=== PATIENT | male | born 1950 | race Caucasian/White ===

== ENCOUNTER 2021-07-08 07:50 | Outpatient (REF) | payer MEDICARE, MEDICAID, SELFPAY ==
[2021-07-08 11:50] LABS: Appearance Urine CLEAR; Color Urine YELLOW; Glucose Urine UA NEG (NEG); Leukocyte Esterase Urine NEG (NEG); Nitrite Urine NEG (NEG); PH 5.5 (5.0-8.0); Specific Gravity - Urine >= 1.030 (1.005-1.025); Urine Blood NEG (NEG); Urine Ketones NEG (NEG); Urine Protein NEG (NEG-TRACE)
[2021-07-08 11:59] LABS: Hematocrit 48.9 % (42.0-52.0); Hemoglobin 15.9 g/dl (14.0-18.0); Mean Corpuscular HGB Conc 32.5 g/dl (31.0-36.0); Mean Corpuscular Hemoglobin 28.6 pg (27.0-33.0); Mean Corpuscular Volume 88.1 fL (80.0-98.0); Mean Platelet Volume 10.4 fL (9.4-12.4); Platelet Count 263 X10*3/uL (160-400); Red Blood Count 5.55 X10*6/uL (4.60-5.80); Red Cell Distribution Width 12.8 % (11.0-16.0)
[2021-07-08 12:11] LABS: Estimated Average Glucose 120 mg/dL; Hemoglobin A1c % 5.8 %
[2021-07-08 12:12] LABS: Alanine Aminotransferase 17 U/L (0-40); Albumin Level 4.4 g/dL (3.5-5.0); Alkaline Phosphatase 93 U/L (39-117); Anion Gap 16 (12-20); Aspartate Amino Transferase 15 U/L (5-37); Bilirubin Total 0.8 mg/dL (0.0-1.0); Blood Urea Nitrogen 19 mg/dL (9-16); Calcium 9.9 mg/dL (8.4-10.2); Carbon Dioxide 26 mmol/L (22-29); Chloride 105 mmol/L (96-108); Cholesterol 193 mg/dL; Estimated Glomerular Filt Rate > 60; Glucose Fasting 152 mg/dL (60-99); HDL Cholesterol 47 mg/dL; LDL Cholesterol Calculated 131 mg/dl; Potassium 4.8 mmol/L (3.3-5.1); Sodium 142 mmol/L (135-145); Total Protein 7.1 g/dL (6.5-8.0); Triglycerides 78 mg/dL
[2021-07-08 12:26] LABS: RBC Urine 0 /HPF (0); WBC Urine 0-2 /HPF (0-4)
[2021-07-08 12:29] LABS: Creatinine Urine 84.62 mg/dL; Microalbum/Creatinine Ratio Ur 5.9 ug/mg cr
[2021-07-09 10:41] LABS: Theophylline 1.5
== END 2021-07-08 07:51 | disposition home or self-care (01) ==
LOC: HO.HMGCLDS 07:50
PROVIDERS: PCP Internal Medicine; Visit Provider Internal Medicine
DX: J44.9 Chronic obstructive pulmonary disease, unspecified (principal); E11.9 Type 2 diabetes mellitus without complications; J45.909 Unspecified asthma, uncomplicated; Z98.890 Other specified postprocedural states
CPT/HCPCS: 36415; 80053; 80061; 80198; 81001; 82043; 83036; 84153; 85027

== ENCOUNTER 2021-09-27 07:17 | Outpatient (REF) | payer MEDICARE, MEDICAID, SELFPAY ==
[2021-09-27 11:57] LABS: Estimated Average Glucose 123 mg/dL; Hemoglobin A1c % 5.9 %
[2021-09-27 12:35] LABS: Creatinine Urine 159.15 mg/dL; Microalbum/Creatinine Ratio Ur 5.6 ug/mg cr
[2021-09-27 13:12] LABS: Alanine Aminotransferase 17 U/L (0-40); Albumin Level 4.3 g/dL (3.5-5.0); Alkaline Phosphatase 99 U/L (39-117); Anion Gap 16 (12-20); Aspartate Amino Transferase 17 U/L (5-37); Bilirubin Total 1.2 mg/dL (0.0-1.0); Blood Urea Nitrogen 13 mg/dL (9-16); Calcium 9.8 mg/dL (8.4-10.2); Carbon Dioxide 27 mmol/L (22-29); Chloride 98 mmol/L (96-108); Cholesterol 202 mg/dL; Estimated Glomerular Filt Rate > 60; Glucose Fasting 125 mg/dL (60-99); HDL Cholesterol 42 mg/dL; LDL Cholesterol Calculated 130 mg/dl; Potassium 4.6 mmol/L (3.3-5.1); Sodium 136 mmol/L (135-145); Total Protein 7.2 g/dL (6.5-8.0); Triglycerides 150 mg/dL
== END 2021-09-27 07:18 | disposition home or self-care (01) ==
LOC: HO.HMGCLDS 07:17
PROVIDERS: Visit Provider Internal Medicine
DX: E11.9 Type 2 diabetes mellitus without complications (principal); E78.5 Hyperlipidemia, unspecified; J44.9 Chronic obstructive pulmonary disease, unspecified
CPT/HCPCS: 36415; 80053; 80061; 82043; 83036

== ENCOUNTER 2021-10-08 09:07 | Outpatient (REF) | payer MEDICARE, MEDICAID, SELFPAY ==
--- NOTE | ~2021-10-08 | XR_ITS ---
EXAMINATION: XR SHOULDER, RIGHT CLINICAL INFORMATION: Right shoulder pain. COMPARISON: None TECHNIQUE: Four views of the right shoulder. FINDINGS: Alignment is anatomic. No significant glenohumeral degenerative changes. Mild degenerative changes in the acromioclavicular joint. Scarring in the right midlung. XR/XR shoulder RT min 2V IMPRESSION: Mild degenerative changes in the acromioclavicular joint.
[2021-10-08 11:54] LABS: Anion Gap 14 (12-20); Blood Urea Nitrogen 12 mg/dL (9-16); Carbon Dioxide 28 mmol/L (22-29); Chloride 103 mmol/L (96-108); Estimated Glomerular Filt Rate > 60; Glucose Random 104 mg/dL (60-115); Potassium 4.8 mmol/L (3.3-5.1); Sodium 140 mmol/L (135-145)
[2021-10-08 12:19] LABS: Vitamin D 25-OH Total 23.4 ng/mL (>30)
[2021-10-10 08:28] LABS: Folate > 20.0 ng/mL (> or = 4.0); Vitamin B12 355 pg/mL (200-900)
== END 2021-10-08 09:08 | disposition home or self-care (01) ==
LOC: HO.HMGCX 09:07
PROVIDERS: PCP Internal Medicine; Visit Provider Internal Medicine
DX: M25.511 Pain in right shoulder (principal); E11.9 Type 2 diabetes mellitus without complications; E78.5 Hyperlipidemia, unspecified; J45.909 Unspecified asthma, uncomplicated
CPT/HCPCS: 36415; 73030; 80048; 82306; 82607; 82746

== ENCOUNTER → 2021-10-21 14:31 | Outpatient (BNVA) | payer MEDICARE, MEDICAID, SELFPAY | PROVIDERS: PCP Internal Medicine; Visit Provider Physician Assistant | DX: S46.001A Unspecified injury of muscle(s) and tendon(s) of the rotator cuff of right shoulder, initial encounter (principal); M19.019 Primary osteoarthritis, unspecified shoulder | CPT/HCPCS: 20610; 99202; J1020 ==

== ENCOUNTER 2021-11-04 12:53 | Outpatient (REF) | payer MEDICARE, MEDICAID, SELFPAY ==
--- NOTE | ~2021-11-04 | MR_ITS ---
EXAMINATION: MR SHOULDER WITHOUT CONTRAST, RIGHT CLINICAL INFORMATION: Right shoulder pain. Decreased range of motion. COMPARISON: Radiographs dated 10/08/2021. TECHNIQUE: MRI of the shoulder without contrast was performed on a high-field scanner. FINDINGS: ROTATOR CUFF: There is oukg-ye-zlgaehvl tendinosis of the supraspinatus and infraspinatus. No tears. Mild subscapularis tendinosis. Mild generalized grade 1 fatty replacement of the shoulder musculature. No additional atrophy. BICEPS: Normal. CORACOACROMIAL ARCH: The undersurface of the acromion is curved with no subacromial spur. Moderate acromioclavicular osteoarthritis. Mild subacromial-subdeltoid bursitis. LABRUM/CAPSULE: There is undersurface fraying of the glenoid labrum posterosuperiorly. No tears. Joint capsule is thickened and edematous at the inferior glenohumeral ligament, middle glenohumeral ligament, superior glenohumeral ligament, and coracohumeral ligament. GLENOHUMERAL JOINT/MARROW: Small marginal osteophytes of the glenoid. There is subtle chondral surface irregularity at the glenoid posterosuperiorly. No fracture or malalignment. Trace joint effusion. MR/MR shoulder RT wo con IMPRESSION: 1. Capsular thickening and edema at the glenohumeral joint as can be seen with adhesive capsulitis provided the appropriate clinical suspicion. 2. Oncx-wn-hbnmestq rotator cuff tendinosis. No tears. 3. Moderate acromioclavicular and minimal glenohumeral osteoarthritis. 4. Mild subacromial-subdeltoid bursitis.
== END 2021-11-04 12:54 | disposition home or self-care (01) ==
LOC: HO.MRI 12:53
PROVIDERS: Visit Provider Physician Assistant
DX: M19.011 Primary osteoarthritis, right shoulder (principal); S46.001A Unspecified injury of muscle(s) and tendon(s) of the rotator cuff of right shoulder, initial encounter
CPT/HCPCS: 73221

== ENCOUNTER 2022-01-12 15:00 | Outpatient (RCR) | payer MEDICARE, MEDICAID, SELFPAY ==
--- NOTE | 2021-12-22 08:48 | MHC.PT.EP ---
[facility] [place] Office [place] Office [place] Office [address] Marlen Hernandez [address] [phone] F: [phone] F: [phone] F: [phone] F: [phone] Physical Therapy Plan of Care Date of Evaluation: Date of Surgery: Diagnosis: R shoulder AC OA Assessment: Pt is a 71 y/o R hand dominant male who presents with signs and sx consistent with shoulder dysfunction resulting in decreased tolerance and ability to perform reaching a high shelf, dressing pullovers, reaching neck and back for hygiene/ dressing and carrying objects of weight as well as disturbed sleep secondary to decreased R UE strength and ROM, decreased posture, increased tissue tension, TTP of lateral and superior R shoulder. and pain. Pt is deemed an appropriate candidate to receive skilled PT in order to address his physical limitations to improve his functional ability. Frequency and Duration: The patient will be seen 2 x /wk x 5 wks. Short Term Goals: Initiate HEP. improve R shoulder flexion AROM to > 149 degrees; initial 85. Improve pain with activities to < 6/10; initial: 10/10. Statistical Technician Goals: I with HEP. WFL R shoulder ROM achieved. Pt will ab able to place objects on high shelf with at most 3/10 difficulty; initial 10/10. Pt will be able to dress pullovers w/o difficulty; initial 7/10. Improve R shoulder MMT globally by at least 1/2 MMT grade. Treatment Plan: Modalities to reduce pain, spasms and effusion. Manual therapy to restore motion and function. Therapeutic exercise to improve strength and flexibility. Neuromuscular re-education for posture and balance. Therapeutic activities to return to functional activities of daily living. Electronically signed by: Royal Motley PT Please sign and return to therapist. Thank you for your referral.
--- NOTE | 2022-02-22 08:21 | MHC.PT.DC ---
[facility] [place] Office [place] Office [place] Office [address] Marlen Hernandez [address] [facility] [phone] F: [phone] F: [phone] F: [phone] F: [phone] Physical Therapy Discharge Report Diagnosis: R shoulder AC OA Date of Surgery: Date of Evaluation: 12/20/21 Date of Discharge: Treatments to Date: 4 Cancellations to Date: No Shows to Date: Discharge Status: Patient Elected to Stop Discharge Summary: Electronically signed by: Royal Motley PT. Please sign and return to therapist. Thank you for your referral.
== END 2022-02-22 08:21 | disposition home or self-care (01) ==
LOC: HO.PTCHIC 15:00
PROVIDERS: PCP Internal Medicine; Visit Provider Physician Assistant
DX: S46.001D Unspecified injury of muscle(s) and tendon(s) of the rotator cuff of right shoulder, subsequent encounter (principal); M19.011 Primary osteoarthritis, right shoulder
CPT/HCPCS: 97014; 97110; 97140; 97161; 97162

== ENCOUNTER → 2022-01-23 14:25 | Outpatient (BNVA) | payer MEDICARE, MEDICAID, SELFPAY | PROVIDERS: PCP Internal Medicine; Visit Provider Physician Assistant | DX: M19.011 Primary osteoarthritis, right shoulder (principal); M75.21 Bicipital tendinitis, right shoulder | CPT/HCPCS: 99212 ==

== ENCOUNTER → 2022-02-09 12:56 | Outpatient (BNVA) | payer MEDICARE, MEDICAID, SELFPAY | PROVIDERS: PCP Internal Medicine; Visit Provider Orthopaedic Surgery | DX: M75.01 Adhesive capsulitis of right shoulder (principal) | CPT/HCPCS: 99212 ==

== ENCOUNTER 2023-03-06 13:21 | Outpatient (AMB) | payer MEDICARE, MEDICAID, SELFPAY ==
--- NOTE | 2023-03-06 13:37 | A.OFFPC_ITS ---
Vital Signs 03/06/23 13:39 Height 5 ft 7 in Weight 260 lb BMI 40.7 BP 130/90 H Blood Pressure Location Lt brachial Position Sitting Pulse 76 Pulse Source Pulse Oximeter Pulse Oximetry (%) 97 Oxygen Delivery Method Room Air Intake Visit Reasons: Follow up visit complex Allergies metformin Adverse Reaction (Intermediate, Verified 09/19/22 13:45) Nausea Medication List - Last Reconciled 03/06/23 by Joyce Franks MD escitalopram oxalate 20 mg PO DAILY teieugxpunb-ozbqxeopg-ofgwuwlr 200-62.5-25 mcg (Trelegy Ellipta) 1 inh inhalation DAILY metformin 500 mg PO BID montelukast 10 mg PO DAILY ramipril 5 mg PO DAILY semaglutide (Ozempic) 0.25 mg subcut QWEEK Tobacco use date assessed: 03/06/23 HPI Follow up visit complex HPI Details Pt presents for f/u DM 2, COPD, HTN. Patient spent 8 months in [place]. He has been monitoring his blood glucose occasionally with the readings between 120-140. He started on Ozempic 0.25 mg for 1 month and is planning to increase the dose to 0.5 mg. He denies any side effects from the medication. [facility] Medical History Anxiety Asthma Claudication COPD (chronic obstructive pulmonary disease) DM type 2 (diabetes mellitus, type 2) HTN (hypertension) Hyperlipidemia Neuropathy Obesity COLTON (obstructive sleep apnea) Osteoarthritis Shoulder pain, right Surgical History History of hernia surgery History of hip surgery Hx of colonoscopy Family History Father Hypertension Mother Cancer Social History Housing: House Patient Tobacco Use Status: Never used Tobacco e-Cigarette/Vaping Use: Never Used Current occupational status: retired Questionnaire Thrive Questionnaire Date Thrive assessed: 09/29/21 Review of Systems Const All systems reviewed & are unremarkable except as noted in HPI and below Reports no additional complaints Eyes Reports no additional complaints ENT Reports no additional complaints Card Reports no additional complaints Resp Reports no additional complaints GI Reports no additional complaints Physical exam (Primary Care) Vital Signs: Last Vital Signs Pulse 76 08/01/23 13:39 BP 130/90 H 03/06/23 13:39 Pulse Ox 97 03/06/23 13:39 Oxygen Delivery Method Room Air 03/06/23 13:39 BMI result Body Mass Index 40.7 Tobacco/Smoking Status: Tobacco use Status Tobacco use date assessed 03/06/23 03/06/23 13:44 Patient Tobacco Use Status Never used Tobacco 03/06/23 13:44 e-Cigarette/Vaping Use Never Used 03/06/23 13:44 Thrive Assessment: Date of Thrive Assessment Date Thrive assessed 09/29/21 03/06/23 13:44 Const General: no acute distress HENMT Head: Yes normal to inspection Throat: Yes posterior oropharynx normal Eyes General: appearance normal, both eyes and all related structures Neck Neck: Yes supple Resp Effort & Inspection: normal respiratory effort Auscultation: diminished lung sounds Cardio Rhythm: regular rhythm Heart sounds: S1 normal heart sound present and S2 normal heart sound present GI Inspection: Yes normal to inspection Palpation (GI): Soft to palpation Percussion: Yes normal to percussion Auscultation: normal bowel sounds Assessment and Plan Assessment & Plan (1) HTN (hypertension): Code(s): I10 - Essential (primary) hypertension Plan: Continue ramipril (2) Hyperlipidemia: Code(s): E78.5 - Hyperlipidemia, unspecified Plan: Continue low-cholesterol diet return for fasting blood work tomorrow (3) DM type 2 (diabetes mellitus, type 2): Code(s): E11.9 - Type 2 diabetes mellitus without complications Plan: Continue metformin and Ozempic (4) COPD (chronic obstructive pulmonary disease): Comment: Intolerant to Trelegy Code(s): J44.9 - Chronic obstructive pulmonary disease, unspecified Plan: Continue theophylline Orders: Orders Comprehensive [place]. Panel Fast Today E11.9 - Type 2 diabetes mellitus without complications, E78.5 - Hyperlipidemia, unspecified, I10 - Essential (primary) hypertension, J44.9 - Chronic obstructive pulmonary disease, unspecified Hemoglobin A1c Today E11.9 - Type 2 diabetes mellitus without complications, E78.5 - Hyperlipidemia, unspecified, I10 - Essential (primary) hypertension, J44.9 - Chronic obstructive pulmonary disease, unspecified Lipid Panel Today E11.9 - Type 2 diabetes mellitus without complications, E78.5 - Hyperlipidemia, unspecified, I10 - Essential (primary) hypertension, J44.9 - Chronic obstructive pulmonary disease, unspecified Microalbumin, Random (w Creat) Today E11.9 - Type 2 diabetes mellitus without complications, E78.5 - Hyperlipidemia, unspecified, I10 - Essential (primary) hypertension, J44.9 - Chronic obstructive pulmonary disease, unspecified Complete Blood Count Auto Diff Today E11.9 - Type 2 diabetes mellitus without complications, E78.5 - Hyperlipidemia, unspecified, I10 - Essential (primary) hypertension, J44.9 - Chronic obstructive pulmonary disease, unspecified Medications: New metformin 500 mg PO BID 180 tabs 2RF theophylline ER 300 mg PO DAILY 90 caps 0RF semaglutide (Ozempic) for 4 weeks then increase to 0.5 mg 0.25 mg (0.368 mL) subcut QWEEK 9 mL 1RF semaglutide (Ozempic) 0.5 mg (0.736 mL) subcut QWEEK 9 mL 1RF Discontinued montelukast Discontinued Reason: Doctor's Order 10 mg PO DAILY 90 tabs 3RF Coding Level of Care Code Est Pt Level 4 (31624) Diagnoses HTN (hypertension) I10 Hyperlipidemia E78.5 DM type 2 (diabetes mellitus, type 2) E11.9 COPD (chronic obstructive pulmonary disease) J44.9
[2023-03-06 13:39] VITALS: BP 130/90; PULSE 76; O2SAT 97; BMI 40.7
== END 2023-03-06 14:49 | disposition home or self-care (01) ==
PROVIDERS: PCP Internal Medicine; Visit Provider Internal Medicine
DX: I10 Essential (primary) hypertension (principal); E78.5 Hyperlipidemia, unspecified; E11.9 Type 2 diabetes mellitus without complications; J44.9 Chronic obstructive pulmonary disease, unspecified
CPT/HCPCS: 99214

== ENCOUNTER 2023-03-07 06:40 | Outpatient (REF) | payer MEDICARE, MEDICAID, SELFPAY ==
[2023-03-07 11:33] LABS: MANUAL DIFF FLAG NO
[2023-03-07 11:47] LABS: Basophils Percent Auto 0.2 % (0-2); Eosinophils Absolute Auto 0.3 X10*3/uL (0.0-0.4); Eosinophils Percent Auto 3.1 % (0-4); Hematocrit 46.8 % (42.0-52.0); Hemoglobin 15.4 g/dl (14.0-18.0); Imm Gran Abs Auto 0.03 X10*3/uL (0.00-0.03); Imm Gran Pct Auto 0.4 % (0.0-0.4); Lymphocytes Absolute Auto 2.2 X10*3/uL (1.2-4.9); Lymphocytes Percent Auto 26.9 % (20-40); Mean Corpuscular HGB Conc 32.9 g/dl (31.0-36.0); Mean Corpuscular Hemoglobin 29.1 pg (27.0-33.0); Mean Corpuscular Volume 88.3 fL (80.0-98.0); Mean Platelet Volume 9.7 fL (9.4-12.4); Monocytes Absolute Auto 0.7 X10*3/uL (0.1-1.2); Monocytes Percent Auto 8.1 % (2-11); Neutrophils Percent Auto 61.3 % (45-73); Platelet Count 281 X10*3/uL (160-400); Red Cell Distribution Width 12.8 % (11.0-16.0); White Blood Count 8.1 X10*3/uL (4.8-10.8)
[2023-03-07 11:59] LABS: Estimated Average Glucose 137 mg/dL; Hemoglobin A1c % 6.4 %
[2023-03-07 12:04] LABS: Alanine Aminotransferase 21 U/L (0-40); Albumin Level 4.1 g/dL (3.5-5.0); Alkaline Phosphatase 110 U/L (39-117); Anion Gap 14 (12-20); Aspartate Amino Transferase 19 U/L (5-37); Bilirubin Total 0.4 mg/dL (0.0-1.0); Blood Urea Nitrogen 17 mg/dL (9-16); Calcium 9.8 mg/dL (8.4-10.2); Carbon Dioxide 28 mmol/L (22-29); Chloride 103 mmol/L (96-108); Cholesterol 171 mg/dL; Estimated Glomerular Filt Rate > 60; Glucose Fasting 128 mg/dL (60-99); HDL Cholesterol 39 mg/dL; LDL Cholesterol Calculated 112 mg/dl; Potassium 4.4 mmol/L (3.3-5.1); Sodium 141 mmol/L (135-145); Total Protein 7.1 g/dL (6.5-8.0); Triglycerides 101 mg/dL
[2023-03-07 12:25] LABS: Creatinine Urine 77.85 mg/dL; Microalbum/Creatinine Ratio Ur 19.2 ug/mg cr
== END 2023-03-07 06:41 | disposition home or self-care (01) ==
LOC: HO.HMGCLDS 06:40
PROVIDERS: PCP Internal Medicine; Visit Provider Internal Medicine
DX: E78.5 Hyperlipidemia, unspecified (principal); I10 Essential (primary) hypertension; J44.9 Chronic obstructive pulmonary disease, unspecified; E11.9 Type 2 diabetes mellitus without complications
CPT/HCPCS: 36415; 80053; 80061; 82043; 83036; 85025

== ENCOUNTER 2024-01-10 13:13 | Outpatient (AMB) | payer MEDICARE, MEDICAID, SELFPAY ==
--- NOTE | 2024-01-10 13:17 | A.OFFPC_ITS ---
Vital Signs 01/10/24 13:38 Height 5 ft 7 in Weight 250 lb BMI 39.2 BP 126/74 Blood Pressure Location Lt brachial Position Sitting Pulse 93 Pulse Source Pulse Oximeter Pulse Oximetry (%) 96 Oxygen Delivery Method Room Air Intake Visit Reasons: Follow up Intake Note: Pt is here today for a follow up visit on HTN and DM. Allergies metformin Adverse Reaction (Intermediate, Verified 01/10/24 13:18) Nausea Medication List - Last Reconciled 01/10/24 by Joyce Franks MD escitalopram oxalate 20 mg PO DAILY xkwnrfbllit-wmkdytpkw-ndfbuyvl 200-62.5-25 mcg (Trelegy Ellipta) 1 inh inhalation DAILY metformin 500 mg PO BID Ozempic (semaglutide) 1 mg (0.75 mL) subcut QWEEK NS ramipril 5 mg PO DAILY theophylline ER 300 mg PO DAILY Tobacco use date assessed: 01/10/24 Fall risk assessment: No Falls in past year Last assessed Fall Risk: 01/10/24 Dental Screening Dental Screen Date: 01/10/24 Did you have a dental visit in the last 12 months?: Yes Did you have a dental problem in the last 6 months where you did not have access to dental care?: No Was dental information given to patient?: Patient has dentist HPI Follow up HPI Details Patient presents for follow-up of type 2 diabetes COPD hypertension chronic anxiety. He had blood work done in [place] but did not bring his results. Patient reports dyspnea on exertion but denies exertional chest pain palpitations PND orthopnea wheezing or coughing. PFS Medical History Neuropathy HTN (hypertension) Shoulder pain, right Hyperlipidemia Obesity COLTON (obstructive sleep apnea) DM type 2 (diabetes mellitus, type 2) Osteoarthritis Anxiety COPD (chronic obstructive pulmonary disease) Asthma Surgical History Hx of colonoscopy History of hip surgery History of hernia surgery Family History Father Hypertension Mother Cancer Social History Housing: House Patient Tobacco Use Status: Never used Tobacco e-Cigarette/Vaping Use: Never Used service: No Current occupational status: retired Cognitive needs: No Hearing needs: No Vision needs: No Questionnaire PHQ-9 Over the last 2 weeks, how often have you been bothered by any of the following problems? 1. Little interest or pleasure in doing things: not at all 2. Feeling down, depressed, or hopeless: not at all 3. Trouble falling or staying asleep, or sleeping too much: several days 4. Feeling tired or having little energy: not at all 5. Poor appetite or overeating: not at all 6. Feeling bad about yourself - or that you are a failure or have let yourself or your family down: not at all 7. Trouble concentrating on things, such as reading the newspaper or watching television: not at all 8. Moving or speaking so slowly that other people could have noticed. Or the opposite - being so fidgety or restless that you have been moving around a lot more than usual: not at all 9. Thoughts that you would be better off or of hurting yourself in some way: not at all Total score: 1 Depression Screening Interpretation: Negative Depression Screening Done: Yes Source: Developed by Drs. Kumar Gallo, Marivel Smith, Martínez Olvera and colleagues, with an educational elena from [employer]. Thrive Questionnaire Date Thrive assessed: 01/10/24 I am a: Patient What is your living situation today?: I have a steady place to live Within the past 12 months, did the food you bought not last and you didn't have the money to get more?: Never true Within the past 12 months, did you worry whether your food would run out before you got money to buy more?: Never true Do you have trouble paying for medicines?: No Do you have trouble getting transportation to medical appointments?: No Do you have trouble paying your heating and electricity bill?: No Do you have trouble taking care of your child, family member or friend?: No Do you have trouble with day-to-day activities such as bathing, preparing meals, shopping, managing finances, etc.?: No Are you currently unemployed and looking for a job?: No Are you interested in more education?: No Please select the resources that you would like help with: None THRIVE Score: 0 AUDIT C Alcohol Use Questionnaire (AUDIT-C) 1. How often do you have a drink containing alcohol?: Never 3. How often do you have six or more drinks on one occasion?: Never Total Score: 0 LEN-7 AMB Questionnaire LEN-7 Date LEN - 7 assessed: 01/10/24 Feeling nervous, anxious, or on edge: 0 = Not at all Not being able to stop or control worryin = Not at all Worrying too much about different things: 0 = Not at all Trouble relaxin = Not at all Being so restless that it is hard to sit still: 0 = Not at all Becoming easily annoyed or irritable: 0 = Not at all Feeling afraid as if something awful might happen: 0 = Not at all Total LEN-7 score (0-4 normal; 5-9 mild; 10-14 moderate; 15-21 severe): 0 Source: Developed by Drs. Kumar Gallo, Marivel Smith, Marítnez Olvera and colleagues, with an educational elena from [employer]. Review of Systems Const All systems reviewed & are unremarkable except as noted in HPI and below Eyes Reports no additional complaints ENT Reports no additional complaints Card Reports no additional complaints Resp Reports no additional complaints GI Reports no additional complaints Reports no additional complaints Physical exam (Primary Care) Vital Signs: Last Vital Signs Pulse 93 01/10/24 13:38 BP 126/74 01/10/24 13:38 Pulse Ox 96 01/10/24 13:38 Oxygen Delivery Method Room Air 01/10/24 13:38 BMI result Body Mass Index 39.2 Tobacco/Smoking Status: Tobacco use Status Tobacco use date assessed 01/10/24 01/10/24 13:19 Patient Tobacco Use Status Never used Tobacco 01/10/24 13:19 e-Cigarette/Vaping Use Never Used 01/10/24 13:19 PHQ-9: PHQ-9 Score PHQ-9: Total score 1 01/10/24 13:19 Depression Screening Interpretation: Negative Thrive Assessment: Date of Thrive Assessment Date Thrive assessed 01/10/24 01/10/24 13:19 Const General: no acute distress HENMT Face and sinus: Yes normal facial exam Neck Neck: Yes supple Resp Effort & Inspection: normal respiratory effort Auscultation: clear to auscultation bilaterally Cardio Rhythm: regular rhythm Heart sounds: S1 normal heart sound present and S2 normal heart sound present GI Inspection: Yes normal to inspection Palpation (GI): Soft to palpation Percussion: Yes normal to percussion Auscultation: normal bowel sounds Assessment and Plan Assessment & Plan (1) COPD (chronic obstructive pulmonary disease): Code(s): J44.9 - Chronic obstructive pulmonary disease, unspecified Plan: Continue Trelegy and theophylline (2) DM type 2 (diabetes mellitus, type 2): Code(s): E11.9 - Type 2 diabetes mellitus without complications Plan: ADA diet increase exercise weight loss discussed with the patient .he will return tomorrow for fasting blood work including A1c and microalbumin. Ozempic will be increased to 2 mg, patient is going to [place] in 2 weeks and will follow-up in 3 months with a fasting labs before (3) Hyperlipidemia: Comment: Patient declined taking medications Code(s): E78.5 - Hyperlipidemia, unspecified Plan: Check lipid profile (4) HTN (hypertension): Code(s): I10 - Essential (primary) hypertension Plan: Continue ramipril Orders: Orders Hemoglobin A1c Today E11.9 - Type 2 diabetes mellitus without complications, E78.5 - Hyperlipidemia, unspecified, I10 - Essential (primary) hypertension, J44.9 - Chronic obstructive pulmonary disease, unspecified Lipid Panel Today E11.9 - Type 2 diabetes mellitus without complications, E78.5 - Hyperlipidemia, unspecified, I10 - Essential (primary) hypertension, J44.9 - Chronic obstructive pulmonary disease, unspecified Microalbumin, Random (w Creat) Today E11.9 - Type 2 diabetes mellitus without complications, E78.5 - Hyperlipidemia, unspecified, I10 - Essential (primary) hypertension, J44.9 - Chronic obstructive pulmonary disease, unspecified Complete Blood Count Auto Diff Today E11.9 - Type 2 diabetes mellitus without complications, E78.5 - Hyperlipidemia, unspecified, I10 - Essential (primary) hypertension, J44.9 - Chronic obstructive pulmonary disease, unspecified Comprehensive [place]. Panel Fast Today E11.9 - Type 2 diabetes mellitus without complications, E78.5 - Hyperlipidemia, unspecified, I10 - Essential (primary) hypertension, J44.9 - Chronic obstructive pulmonary disease, unspecified Medications: Refilled escitalopram oxalate 20 mg PO DAILY 90 tabs 3RF gkcvoqnijmj-tmjxjfmny-xfkgxjro 200-62.5-25 mcg (Trelegy Ellipta) 1 inh inhalation DAILY 180 ea 3RF ramipril 5 mg PO DAILY 90 caps 3RF Coding Level of Care Code Est Pt Level 4 (64426) Diagnoses COPD (chronic obstructive pulmonary disease) J44.9 DM type 2 (diabetes mellitus, type 2) E11.9 Hyperlipidemia E78.5 HTN (hypertension) I10
[2024-01-10 13:38] VITALS: BP 126/74; PULSE 93; O2SAT 96; BMI 39.2
== END 2024-01-10 14:34 | disposition home or self-care (01) ==
PROVIDERS: PCP Internal Medicine; Visit Provider Internal Medicine
DX: J44.9 Chronic obstructive pulmonary disease, unspecified (principal); E11.9 Type 2 diabetes mellitus without complications; E78.5 Hyperlipidemia, unspecified; I10 Essential (primary) hypertension
CPT/HCPCS: 99214

== ENCOUNTER 2024-01-10 14:24 | Outpatient (REF) | payer MEDICARE, SELFPAY ==
[2024-01-10 16:04] LABS: MANUAL DIFF FLAG NO
[2024-01-10 16:16] LABS: Basophils Percent Auto 0.3 % (0-2); Eosinophils Absolute Auto 0.4 X10*3/uL (0.0-0.4); Hematocrit 46.4 % (42.0-52.0); Hemoglobin 15.5 g/dl (14.0-18.0); Imm Gran Abs Auto 0.04 X10*3/uL (0.00-0.03); Imm Gran Pct Auto 0.3 % (0.0-0.4); Lymphocytes Absolute Auto 3.3 X10*3/uL (1.2-4.9); Lymphocytes Percent Auto 28.4 % (20-40); Mean Corpuscular HGB Conc 33.4 g/dl (31.0-36.0); Mean Corpuscular Hemoglobin 29.4 pg (27.0-33.0); Mean Platelet Volume 9.9 fL (9.4-12.4); Monocytes Absolute Auto 0.8 X10*3/uL (0.1-1.2); Monocytes Percent Auto 6.8 % (2-11); Neutrophils Absolute Auto 7.2 x10*3/uL (2.0-8.3); Neutrophils Percent Auto 61.2 % (45-73); Platelet Count 284 X10*3/uL (160-400); Red Blood Count 5.27 X10*6/uL (4.60-5.80); Red Cell Distribution Width 13.2 % (11.0-16.0); White Blood Count 11.7 X10*3/uL (4.8-10.8)
[2024-01-10 16:35] LABS: Alanine Aminotransferase 25 U/L (0-40); Albumin Level 4.1 g/dL (3.5-5.0); Alkaline Phosphatase 88 U/L (39-117); Anion Gap 13 (12-20); Aspartate Amino Transferase 19 U/L (5-37); Bilirubin Total 0.3 mg/dL (0.0-1.0); Blood Urea Nitrogen 25 mg/dL (9-16); Calcium 9.2 mg/dL (8.4-10.2); Carbon Dioxide 27 mmol/L (22-29); Chloride 105 mmol/L (96-108); Cholesterol 162 mg/dL (<200); Estimated Glomerular Filt Rate > 60; Glucose Fasting 92 mg/dL (60-99); HDL Cholesterol 34 mg/dL (>40); LDL Cholesterol Calculated 86 mg/dL (<100); Potassium 4.1 mmol/L (3.3-5.1); Sodium 141 mmol/L (135-145); Total Protein 6.9 g/dL (6.5-8.0); Triglycerides 214 mg/dL (<150)
[2024-01-10 16:40] LABS: Estimated Average Glucose 117 mg/dL; Hemoglobin A1c % 5.7 % (<6.0)
[2024-01-10 16:42] LABS: Creatinine Urine 148.58 mg/dL; Microalbum/Creatinine Ratio Ur 9.4 ug/mg cr (<30)
== END 2024-01-10 14:25 | disposition home or self-care (01) ==
LOC: HO.HMGCLDS 14:24
PROVIDERS: PCP Internal Medicine; Visit Provider Internal Medicine
DX: I10 Essential (primary) hypertension (principal); E78.5 Hyperlipidemia, unspecified; E11.9 Type 2 diabetes mellitus without complications; J44.9 Chronic obstructive pulmonary disease, unspecified
CPT/HCPCS: 36415; 80053; 80061; 82043; 82570; 83036; 85025